=== PATIENT | male | born 1950 | race Caucasian/White ===

== ENCOUNTER → 2019-05-29 | Outpatient (CLI) | payer MEDICARE, BC ==
[~2019-05-29] MED LIST: ALREX 1 ML1 ML OP; COREG 25MG25 MG/TAB PO; DIOVAN HCT 25 M1 TAB PO; EDARB4012.5TAB PO; FLONASE NASAL S16 GM NS; GENTEAL 0.25%-015 ML OP; GENTEAL0.32 OP; MULTIPLE VITAMI1 CAP PO; NORCO 325 MG-51 TAB PO; PRILOSEC 20MG20 MG PO; VOLTAREN 75 DR75 MG PO; ZANTAC 150MG T150 MG PO; [UNRECOGNIZED DRUG - OTHER]
== END ==
LOC: COL.RAD 13:07
DX: J32.9 Chronic sinusitis, unspecified (principal); R42 Dizziness and giddiness; Z98.890 Other specified postprocedural states

== ENCOUNTER → 2019-11-12 | Outpatient (CLI) | payer MEDICARE, BC ==
[2019-11-12 11:07] LABS: ALBUMIN 4.9 gm/dL (3.5-5.0); BILIRUBIN,TOTAL 0.4 mg/dL (0.0-1.0); CALCIUM 10.1 mg/dL (8.4-10.2); CREATININE, serum 1.15 (0.66-1.25); POTASSIUM 4.2 mmol/L (3.4-5.0); TOTAL PROTEIN 8.1 gm/dL (6.4-8.2)
== END ==
LOC: COL.LAB 10:40
PROVIDERS: Family Medicine
DX: I10 Essential (primary) hypertension (principal); M54.5 Low back pain

== ENCOUNTER → 2019-11-20 | Outpatient (CLI) | payer MEDICARE, BC | LOC: COL.RAD 13:00 | DX: M51.36 Other intervertebral disc degeneration, lumbar region (principal); M48.061 Spinal stenosis, lumbar region without neurogenic claudication ==

== ENCOUNTER 2020-09-03 06:32 | Day surgery (SDC) | payer MEDICARE, BC ==
[2020-09-03] VITALS (8 sets, daily range): BP systolic 131–145; BP diastolic 85–99; PULSE 68–86; TEMP 97.2–98.2
[~2020-09-03] VITALS: Ht 177.8 cm; Wt 81.0 kg
[2020-09-03] MEDS ORDERED: EDARB4025TAB PO (07:42)
[2020-09-03] MEDS ORDERED: PRILOSEC 20MG20 MG PO (07:45)
[2020-09-03] MEDS ORDERED: NORVASC 5MG5 MG/TAB PO (07:45)
[2020-09-03] MEDS ORDERED: VOLTAREN 75 DR75 MG PO (07:46)
[2020-09-03] MEDS ORDERED: ALREX OP (07:47)
[2020-09-03] MEDS ORDERED: LUTEIN 15 MG-0.1 SGL PO (07:50)
[2020-09-03] MEDS ORDERED: MULTIVITAMIN SEN PO (07:51)
[2020-09-03] MEDS ORDERED: MOVE FREE PLUS1 EACH PO (07:51)
[2020-09-03] MEDS ORDERED: CALCIUM CARBON650 M2 PO (07:53)
[2020-09-03] MEDS ORDERED: FLONASEALLERGY NS (07:53)
[2020-09-03] MEDS ORDERED: MELATONIN5 M1 PO (07:54)
[2020-09-03] MEDS ORDERED: EYE DROP OP (07:56)
[2020-09-03] MEDS ORDERED: ULTRAM 50MG TAB50 MG PO (10:00)
--- NOTE | 2020-09-03 10:45 | NUR ---
Patient returns to room 8 per cart accompanied by Ya ROSS from PACU and is alert and oriented x3. Temp 98.3 and sats 97% on 2L per nasal cannula. IV fluids infusing. Site is free of redness. Incisions x3 covered with exofin. Spouse in room. Siderails up x2 and call light in reach.
--- NOTE | 2020-09-03 11:00 | NUR ---
Resting. Sipping on coffee and eating jello. Sats 100% on 2L per nasal cannula.
--- NOTE | 2020-09-03 11:15 | NUR ---
Tolerated jello and coffee. Denies pain or nausea.
--- NOTE | 2020-09-03 11:30 | NUR ---
Sipping on apple juice. Room air sats 98%.
--- NOTE | 2020-09-03 11:45 | NUR ---
Continues to sip on apple juice and denies pain or nausea.
--- NOTE | 2020-09-03 12:15 | NUR ---
Resting without complaints of pain or nausea.
--- NOTE | 2020-09-03 12:20 | NUR ---
Assisted up to the bathroom. IV converted to INT. Gait steady.
--- NOTE | 2020-09-03 12:31 | NUR ---
Patient has voided and returns to room. Resting on cart. States that he had discomfort with movement. Medicated with [place] 5mg one tab for pain.
--- NOTE | 2020-09-03 12:55 | NUR ---
[place] effective for pain. INT needle discontinued. Site free of redness. Able to dress self.
--- NOTE | 2020-09-03 13:15 | NUR ---
Dismissal instructions given and signed. Voices understanding of these. Informed script for Ultram was sent to pharmacy.
--- NOTE | 2020-09-03 13:21 | NUR ---
Patient dismissed to home driven by spouse and taken to the front door per wheelchair and assisted into vehicle with dismissal instructions in hand.
== END 2020-09-03 13:21 | disposition home or self-care (01) ==
LOC: SDCO
DX: K40.20 Bilateral inguinal hernia, without obstruction or gangrene, not specified as recurrent (principal); K21.9 Gastro-esophageal reflux disease without esophagitis; I10 Essential (primary) hypertension; G47.30 Sleep apnea, unspecified; Z88.0 Allergy status to penicillin; Z88.8 Allergy status to other drugs, medicaments and biological substances; Z85.46 Personal history of malignant neoplasm of prostate; Z90.79 Acquired absence of other genital organ(s); Z20.822 Contact with and (suspected) exposure to COVID-19; Z79.899 Other long term (current) drug therapy; Z83.3 Family history of diabetes mellitus
CPT/HCPCS: A4314; C1781; J0690; J1100; J1885; J2405; J2704; J3010; J7120

== ENCOUNTER 2023-03-28 16:49 | Emergency (ER) | payer MEDICARE, BC ==
[~2023-03-28] VITALS: Ht 177.8 cm; Wt 81.8 kg
[~2023-03-28 16:49] MED LIST changes: +ALREX OP; +CALCIUM CARBON650 M2 PO; +EDARB4025TAB PO; +EYE DROP OP; +FLONASEALLERGY NS; +LUTEIN 15 MG-0.1 SGL PO; +MELATONIN5 M1 PO; +MOVE FREE PLUS1 EACH PO; +MULTIVITAMIN SEN PO; +NORVASC 5MG5 MG/TAB PO; +ULTRAM 50MG TAB50 MG PO
[2023-03-28 16:56] VITALS: TEMP 98
[2023-03-28 17:31] LABS: INR 1.3 (0.8-3.0); PROTHROMBIN TIME 13.7 SECONDS (9.7-12.8)
[2023-03-28 17:39] LABS: BASO # 0.1 K/mm3 (0.0-0.2); BASO % 0.7 % (0.0-2.0); EOS # 0.5 K/mm3 (0.0-0.7); EOS % 4.6 % (0.0-4.0); GRAN # 7.3 K/mm3 (1.4-6.5); GRAN % 73.5 % (42.2-75.2); HEMATOCRIT 38.8 % (42.0-52.0); HEMOGLOBIN 13.3 g/dl (13.5-18.0); LYMPH # 1.3 K/mm3 (1.2-3.4); MEAN CELL VOLUME 87 fl (80.0-100.0); MEAN CORPUSCULAR HEMOGLOBIN 30 pg (27-31); MEAN CORPUSCULAR HGB CONC 34 g/dl (33.0-37.0); MEAN PLATELET VOLUME 8.6 fl (7.4-10.4); MONO # 0.8 K/mm3 (0.1-0.6); MONO % 7.7 % (1.7-9.3); PLATELET COUNT 399 K/mm3 (130-400); RED BLOOD COUNT 4.47 M/mm3 (4.20-5.60); REDCELL DISTRIBUTION WIDTH-CV 12.9 % (11.5-14.5)
[2023-03-28 17:41] LABS: ALBUMIN 3.5 gm/dL (3.4-4.8); BILIRUBIN,TOTAL 0.3 mg/dL (0.2-1.2); CALCIUM 10.5 mg/dL (8.4-10.2); CREATININE, serum 0.91 mg/dL (0.72-1.25); POTASSIUM 4.2 mmol/L (3.5-4.5); TOTAL PROTEIN 7.9 gm/dL (6.2-8.1)
[2023-03-29 04:20] VITALS: BP 128/71; PULSE 65
== END 2023-03-29 04:20 | disposition short-term general hospital (02) ==
LOC: COL.ER 16:49
PROVIDERS: Family Medicine
DX: I71.00 Dissection of unspecified site of aorta (principal); I16.1 Hypertensive emergency
CPT/HCPCS: J1805; J7050; Q9967